=== PATIENT | female | born 1950 | race Caucasian/White ===

== ENCOUNTER → 2023-07-20 13:22 | Outpatient (REF) | payer MEDICARE, SELFPAY ==
--- NOTE | 2023-07-20 13:30 | CA_ITS ---
Transthoracic Echocardiogram Patient (Last, First, Middle): Melinda Gavin, Gender: Female Date of : 1950 Age: 73 Procedure Date: 07/20/2023 Procedure Type: Transthoracic Echocardiogram Location: OP Height: 175.26 cm Weight: 69.4 kg BSA: 1.84 m2 Heart Rate: 69 bpm Valve Inspector: UMU Referring MD: Manuel Bach MD Union Organiser: Dmitry Camacho MD Symptoms: amaurosis fugax, presumed TIA, R/O Valvular heart disease Study Quality: Adequate ECG Rhythm: Sinus Conclusions: - 1. Normal LV ejection fraction of 60 65% 2. Calcified aortic valve changes noted with slightly elevated will also days without any significant aortic stenosis 3. Normal RV systolic pressure 4. No pericardial effusion Findings Left Ventricle Normal left ventricular size, thickness, and systolic function. The visually estimated ejection fraction is between 60-65%. Spectral Doppler is indicative of a normal filling pattern. Peak GLS is -18.2%, within normal limits. Right Ventricle Normal right ventricular cavity size and systolic function. Atria The left atrium is normal in size. Interatrial shunt cannot be excluded. The right atrium is normal in size. Aortic Valve There is mild calcification of the aortic valve. There is moderate thickening of the aortic valve. There is no aortic valve stenosis. There is mild aortic valve regurgitation. Mitral Valve Normal mitral valve structure and function. There is trace mitral valve regurgitation. There is no mitral valve stenosis. Tricuspid Valve Normal tricuspid valve structure. There is trace tricuspid valve regurgitation. The right ventricular systolic pressure is normal. The right ventricular systolic pressure is 26 mmHg. Normal right atrial pressure. There is no evidence of pulmonary hypertension. Great Vessels All visible segments of the aorta are normal in size. The pulmonary artery was not well visualized. There is no dilatation of the ascending aorta. Venous The inferior vena cava is normal in size and collapses greater than 50% with inspiration. Pericardium/Pleural There is no evidence of pericardial effusion. Prior Study Comparison No prior study available for comparison. Measurements 2D Linear Measurements IVSd: 1.24 0.6-0.9/0.6-1.0 cm LVIDd: 4.07 3.9-5.3/4.2-5.9 cm LVIDd Index: 2.21 2.4-3.2/2.2-3.1 cm/m2 LVIDs: 2.70 2.0-3.6 cm LVPWd: 0.82 0.7-1.1 cm LA Diam: 3.60 2.7-3.8/3.0-4.0 cm LAIDs Index: 1.96 1.5-2.3 cm/m2 LV Mass: 169.80 67-162/88-224 g LV Mass Index: 92.28 43-95/49-115 g/m2 LVOT Diam: 2.10 3.0+(-)1.3 cm Mitral Valve MV Pk E: 0.74 MV PK A: 0.66 MV Decel Time: 189.00 E/A: 1.10 E'Lateral: 9.79 E'Medial: 6.53 E/E' Med: 11.30 E/E' Lat: 7.50 PHT: 55.00 MVA PHT: 4.00 Decel [place]: 3.90 Aortic Valve AoV Pk Roshan: 1.53 AoV Pk Grad: 9.00 JOSE: 2.16 AI Pk Roshan: 4.09 AI VTI: 2.22 AI [place]: 1.98 LVOT LVOT Pk Roshan: 1.01 LVOT Mn Roshan: 0.70 LVOT VTI: 0.23 LVOT Pk Grad: 4.00 LVOT Mn Grad: 2.00 LVOT Diam: 2.10 LVOT Area: 3.46 Diastolic Function MV Pk E: 0.74 MV Pk A: 0.66 E/A: 1.10 E'Medial: 6.53 E/E' Med: 11.30 E' Laterial: 9.79 E/E' Lat: 7.50 Right Ventricle TAPSE (mm): 24.30 TVS' Roshan: 11.80 Tricuspid Valve TR Pk Roshan: 2.42 TR Pk Grad: 23.00 RA Press: 3.00 RVSP: 26.00 Great Vessels Aorta Sinus of Valsalva: 3.00 2.0-3.5 cm Ao Asc: 3.30 2.1-3.4 cm Ao Arch: 2.90 Pulmonary Veins Pulm Vein S/D 1.20 Pulmonary Valve PV Pk Roshan: 1.06 Peak PV Grad: 4.00 Updated in Other Vendor System with Status of Final Dmitry Camacho MD electronically signed on 07/21/2023 2:12:36 PM with status of Final
== END ==
LOC: HO.CARD 13:22
PROVIDERS: Visit Provider Family Medicine
DX: G45.9 Transient cerebral ischemic attack, unspecified (principal)
CPT/HCPCS: 93306; 93356

== ENCOUNTER → 2023-07-20 13:30 | Outpatient (BNV) | payer MEDICARE, SELFPAY | PROVIDERS: Visit Provider Internal Medicine Cardiovascular Disease | DX: I35.1 Nonrheumatic aortic (valve) insufficiency (principal); I35.8 Other nonrheumatic aortic valve disorders | CPT/HCPCS: 93306 ==